=== PATIENT | male | born 1940 | race Hispanic/Latino ===

== ENCOUNTER 2017-10-20 16:13 | Emergency (ER) | payer OTHER, SELFPAY ==
[2017-10-20 16:20] VITALS: BP 111/55; PULSE 81; RESP 14; TEMP 36.3; O2SAT 98; BMI 27.3
--- NOTE | 2017-10-20 17:34 | ED.NAVMDI ---
HPI - Nausea/Vomiting/Diarrhea General Chief complaint: Nausea/Vomiting/Diarrhea Stated complaint: CHRONIC DIARHEA,BLACK STOOL,WEAK,LOW ABD PAIN Time Seen by Provider: 10/20/17 17:15 Source: patient Mode of arrival: ambulatory Limitations: no limitations History of Present Illness HPI Narrative: Patient is a 76-year-old male who presents with diarrhea for the last 3 weeks. He said he has had multiple episodes of diarrhea ongoing. His says that maybe they ate some bad tomatoes however she never had the diarrhea. He has not had any severe abdominal pain or diarrhea or fevers. They have not been traveling. Sometimes he goes to 10 times a day other times he does not. They recently 4 days ago tried Kaopectate noticed that his stool decreased but it did become black. They were worried that it may be bleeding. MD complaint: diarrhea Onset (ago): week(s) (3) Description of Vomiting: watery Review of Systems Review of Systems GENERAL: Denies chills, fatigue, malaise, fever, sweats, travel HEENT: Denies sinus pain, ear pain, sore throat, difficulty swallowing, neck pain RESPIRATORY: Denies dyspnea, cough, wheezing, hemoptysis, sputum. CARDIOVASCULAR: Denies chest pain, palpitations, orthopnea, edema GASTROINTESTINAL: See HPI : Denies dysuria, frequency, incontinence, hematuria, urinary retention, flank pain. MUSCULOSKELETAL: Denies weakness, joint pain, or bony pain SKIN: No rash, no erythema, no pruritus NEUROLOGIC: Denies weakness, dizziness, headache, numbness, change in speech, confusion PSYCHIATRIC: No concerning psychosocial issues. 12 point review of systems is negative except for those stated above and HPI [facility] Social History Smoking Status: Former smoker Exam Initial Vital Signs Initial Vital Signs: Vital Signs Temperature 97.3 F L 10/20/17 16:20 Pulse Rate 81 10/20/17 16:20 Respiratory Rate 14 10/20/17 16:20 Blood Pressure 111/55 L 10/20/17 16:20 Pulse Oximetry 98 10/20/17 16:20 GENERAL: Well-appearing, well-nourished and in no acute distress. HEENT: Head atraumatic,EOMI, pupils reactive, face symmetric, moist mucous membranes CARDIOVASCULAR: Regular rate and rhythm without murmurs, rubs or gallops. RESPIRATORY: Breath sounds equal bilaterally, no wheezes rales or rhonchi. ABDOMEN: Soft, nontender. Normoactive bowel sounds all 4 quadrants. No guarding or rebound. RECTAL: Hemoccult-negative, no hemorrhoids, nontender : No CVA tenderness EXTREMITIES: Normal range of motion, no clubbing or edema. Neurovascularly intact NEUROLOGICAL: Alert and oriented x4.Normal gait and speech. SKIN: Warm, dry, no laceration, no petechiae, no rashes or lesions. Course Orders Ordered: ED Orders 10/20/17 17:05 Complete Blood Count AUTO DIFF Stat Comprehensive Metabolic Panel Stat Lipase Stat Sodium Chloride (Normal Saline 0.9%) 1,000 mls @ 1,000 mls/hr IV CONT HUBER Last Admin: 10/20/17 18:20 Dose: 1,000 mls/hr Discontinued Medications Sodium Chloride (Normal Saline 0.9%) 1,000 mls @ 1,000 mls/hr IV BOLUS ONE Stop: 10/20/17 19:17 Last Admin: 10/20/17 19:20 Dose: 1,000 mls/hr Vital Signs - 8 hr 10/20/17 16:20 Temperature 97.3 F L Pulse Rate 81 Respiratory Rate 14 Blood Pressure 111/55 L Pulse Oximetry 98 MDM - Nausea/Vomiting/Diarrhea Lab Data Attestation: I reviewed the patient's lab results. Result diagrams: 10/20/17 17:05 10/20/17 17:05 Lab Results 10/20/17 10/20/17 Range/Units 17:05 17:05 WBC 8.4 (4.5-11.0) X10^3/uL RBC 4.00 L (4.5-5.9) X10^6/uL Hgb 12.9 L (13.5-17.5) g/dL Hct 37.0 L (41-53) % MCV 92.6 (80-100) fL MCH 32.2 (26-34) PG MCHC 34.8 (30-36) % RDW 14.5 (11.6-14.8) % Plt Count 242 (150-400) X10^3/uL Neut % (Auto) 74.6 (50-75) % Lymph % (Auto) 12.7 L (25-40) % [place] % (Auto) 8.5 (3-14) % Eos % (Auto) 3.9 (2-4) % Baso % (Auto) 0.3 (0-2) % Neut # (Auto) 6300 H (6608-9131) /uL Sodium 136 L (137-145) mmol/L Potassium 4.4 (3.4-5.1) mmol/L Chloride 107 (98-107) mmol/L Carbon Dioxide 18 L (22-32) mmol/L BUN 50 H (9-20) mg/dL Creatinine 1.70 H (0.66-1.25) mg/dL Estimated GFR 39.3 L (>60) mL/min BUN/Creatinine Ratio 29.4 H (6-22) Glucose 97 (80-110) mg/dL Calcium 8.9 (8.4-10.2) mg/dL Total Bilirubin 0.4 (0.2-1.3) mg/dL AST 22 (17-59) IU/L ALT 20 L (21-72) IU/L Alkaline Phosphatase 61 (38-126) U/L Total Protein 6.6 (6.3-8.2) g/dL Albumin 3.8 (3.5-5.0) g/dL Globulin 2.8 (1.7-4.1) g/dL Albumin/Globulin Ratio 1.4 (1.0-2.8) Lipase 91 (23-300) U/L MDM Narrative Medical decision making narrative: Patient is guaiac negative and hemodynamically stable hemoglobin hematocrit appear within normal limits despite the number of a black stool episodes that he says he has had over the past 4 days. He is a however of seems dehydrated. He has an elevated BUN and low co2. He did receive 2 L of IV fluids and tolerating oral fluids just fine. I recommend outpatient follow-up this primary doctor in regards to ongoing chronic diarrhea. His abdomen is reexamined and remains soft. I discussed all findings with the patient and spouse, Education has been performed regarding treatment plan, diagnosis, warning signs and symptoms and all concerns have been addressed. Verbally agree with and understood all of the above. Discharge Plan Departure Patient Disposition: Home, Self-Care Clinical Impression: Diarrhea Instructions: Diarrhea Activity Restrictions/Additional Instructions: 1) You have been diagnosed with diarrhea 2) What to do: Drink frequent but small amounts of fluids. I recommend Gatorade or a Gatorade-like product, as it has small amounts of sugar and salts that improve fluid retention. 3) Take medications as directed-may try [id number] Imodium take as directed -Pepto-Bismol and Kaopectate will turn your stool black 4) Follow up with your primary care provider in 2-3 days 5) Return to ER if you should have any new or worsening symptoms such as, unable to hold down fluids despite use of anti-nausea medications and the small volume oral rehydration strategy.
[2017-10-20 17:39] LABS: Add Manual Diff / Slide Review NO; Basophils Percent Auto 0.3 % (0-2); Eosinophils Percent Auto 3.9 % (2-4); Hemoglobin 12.9 g/dL (13.5-17.5); Lymphocytes Percent Auto 12.7 % (25-40); Mean Corpuscular HGB Conc 34.8 % (30-36); Mean Corpuscular Hemoglobin 32.2 PG (26-34); Mean Corpuscular Volume 92.6 fL (80-100); Monocytes Percent Auto 8.5 % (3-14); Neutrophils Absolute Auto 6300 /uL (3000-5900); Neutrophils Percent Auto 74.6 % (50-75); Platelet Count 242 X10^3/uL (150-400); Red Cell Distribution Width 14.5 % (11.6-14.8); White Blood Cell Count 8.4 X10^3/uL (4.5-11.0)
[2017-10-20 17:48] LABS: Alanine Aminotransferase 20 IU/L (21-72); Albumin 3.8 g/dL (3.5-5.0); Albumin Globulin Ratio 1.4 (1.0-2.8); Alkaline Phosphatase 61 U/L (38-126); Aspartate Aminotransferase 22 IU/L (17-59); BUN Creatinine Ratio 29.4 (6-22); Bilirubin Total 0.4 mg/dL (0.2-1.3); Blood Urea Nitrogen 50 mg/dL (9-20); Calcium 8.9 mg/dL (8.4-10.2); Carbon Dioxide 18 mmol/L (22-32); Chloride 107 mmol/L (98-107); Estimated Glomerular Filt Rate 39.3 mL/min (>60); Globulin 2.8 g/dL (1.7-4.1); Glucose 97 mg/dL (80-110); HEMOLYSIS < 15 (0-50); Lipase 91 U/L (23-300); Potassium 4.4 mmol/L (3.4-5.1); Sodium 136 mmol/L (137-145); Total Protein 6.6 g/dL (6.3-8.2)
[2017-10-20] MEDS: SODIUM CHLORIDE 0.9% 1,000 ML 1000 ML IV ×2 (18:20→19:20)
[2017-10-20 20:15] VITALS: BP 150/77; PULSE 78; RESP 16; O2SAT 100
== END 2017-10-20 20:15 | disposition home or self-care (01) ==
PROVIDERS: Emergency Provider Emergency Medicine
DX: R19.7 Diarrhea, unspecified (principal)
CPT/HCPCS: 36591; 80053; 83690; 85025; 96360; 99283; 99284

== ENCOUNTER → 2023-06-02 09:16 | Outpatient (CLI) | payer OTHER, SELFPAY ==
--- NOTE | 2023-06-02 | DI.US.S_ITS ---
PROCEDURE: US RENAL COMPLETE INDICATIONS: ANGIOMYLIPOMA OF BOTH KIDNEYS TECHNIQUE: Real-time scanning was performed of the kidneys and bladder, with image documentation. COMPARISON: [facility], CT, CT ABDOMEN RENAL PROTOCOL, 06/21/2018, 15:41. [facility], US, US RENAL COMPLETE, 02/25/2022, 9:54. [facility], US, US RENAL PRE-BIOPSY EVALUATION, 06/23/2022, 10:17. FINDINGS: Kidneys: Right kidney measures 10.7 cm long; left kidney measures 11.8 cm long. Right renal cortical thickness is 1.8 cm; left renal cortical thickness is 1.2 cm. Renal cortical echotexture is normal. No hydronephrosis or nephrolithiasis. Echogenic focus appearing masslike in the right kidney measuring 1.2 x 1.2 x 1.4 cm. Similar focus is noted on the left measuring 1.2 x 0.9 x 1.2 cm. It is noted on prior exam in 2021, additional echogenic masslike foci were identified. Not all are delineated on current exam. Bladder: Pre-void bladder volume is 120 wound mL. Post-void residual is 0 mL. Pre-void images demonstrate no intraluminal masses or stones. On pre-void images, bilateral ureteral jets are noted with color Doppler interrogation. (Of note, ureteral jets may not be detectable in up to 25% of cases due to insufficient differences in specific gravity between ureteral and bladder urine). Miscellaneous: No free pelvic fluid. IMPRESSION: Echogenic foci suggestive of fat within the kidneys bilaterally. 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 As noted above, additional similar foci were identified on previous exams and not delineated on current study. Dictated by: Pamela Ruiz M.D. on 06/02/2023 at 12:47 Approved by: Pamela Ruiz M.D. on 06/02/2023 at 12:50
== END ==
LOC: US 09:17
PROVIDERS: PCP Internal Medicine; Referring Provider Specialist; Visit Provider Specialist
DX: D17.71 Benign lipomatous neoplasm of kidney (principal)
CPT/HCPCS: 76770